=== PATIENT | female | born 1970 | race American Indian/Alaskan Native ===

== ENCOUNTER → 2016-07-19 11:55 | Day surgery (SDC) | payer OTHER ==
[~2016-07-19 11:55] MED LIST: Buffered Lidocaine 1% SYRIN* 3 ML/SYR SYRINGE INTRADERM ONE; Bupivacaine 0.25% SDV* 30 ML ONE; Etomidate* 2 MG/ML 20 ML VIAL (40 MG) ONE; Midazolam* 1 MG/ML 2 ML VIAL (2 MG) ONE; ceFAZolin 2 GM PREMIX(*) 2 GM/50 ML BAG IVPB ONE; fentaNYL* 50 MCG/ML 2 ML VIAL (100 MCG VIAL) ONE
[2016-07-19 13:20] VITALS: BP 119/76
== END | disposition home or self-care (01) ==
LOC: OREAST 11:55
PROVIDERS: ATTEND Plastic Surgery
DX: M65.331 Trigger finger, right middle finger (principal)
CPT/HCPCS: J0690; J2250; J3010

== ENCOUNTER 2016-08-02 11:41 | Day surgery (SDC) | payer OTHER ==
[~2016-08-02 11:41] MED LIST changes: -Bupivacaine 0.25% SDV* 30 ML ONE; -Etomidate* 2 MG/ML 20 ML VIAL (40 MG) ONE; +Famotidine IV* 10 MG/ML 2 ML (20 mg) IV ONE; +Metoclopramide TAB* 10 MG PO ONE; -Midazolam* 1 MG/ML 2 ML VIAL (2 MG) ONE; -ceFAZolin 2 GM PREMIX(*) 2 GM/50 ML BAG IVPB ONE; -fentaNYL* 50 MCG/ML 2 ML VIAL (100 MCG VIAL) ONE
[2016-08-02] MEDS ORDERED: Famotidine IV* 10 MG/ML 2 ML (20 mg) ONE (12:15)
[2016-08-02] MEDS ORDERED: ceFAZolin 2 GM PREMIX(*) 2 GM/50 ML BAG IVPB ONE (12:15)
[2016-08-02] MEDS ORDERED: Metoclopramide TAB* 10 MG ONE (12:15)
[2016-08-02] MEDS ORDERED: fentaNYL* 50 MCG/ML 2 ML VIAL (100 MCG VIAL) ONE (12:44)
[2016-08-02] MEDS ORDERED: Midazolam* 1 MG/ML 5 ML VIAL (5 MG) ONE (12:44)
[2016-08-02] MEDS ORDERED: Bupivacaine 0.25% SDV* 30 ML ONE (13:27)
[2016-08-02] MEDS ORDERED: fentaNYL* 50 MCG/ML 2 ML VIAL (100 MCG VIAL) IV PRN (13:31)
[2016-08-02] MEDS ORDERED: Ondansetron INJ* 2 MG/ML VIAL IV PRN (13:31)
[2016-08-02] MEDS ORDERED: oxyCODONE/Acetamin 5/325 MG* TAB PO PRN (13:31)
[2016-08-02] MEDS ORDERED: Bacitracin OINTMENT* 1 TUBE ONE (13:57)
[2016-08-02 14:23] VITALS: BP 118/61
== END 2016-08-02 14:43 | disposition home or self-care (01) ==
LOC: OREAST 11:41
PROVIDERS: ATTEND Plastic Surgery
DX: M65.332 Trigger finger, left middle finger (principal)
CPT/HCPCS: A9270-GY; J0690; J2250; J3010

== ENCOUNTER 2016-08-30 09:13 | Day surgery (SDC) | payer OTHER ==
[2016-08-30] MEDS ORDERED: ceFAZolin 2 GM PREMIX(*) 2 GM/50 ML BAG IVPB ONE (09:40)
[2016-08-30] MEDS ORDERED: Buffered Lidocaine 1% SYRIN* 5 ML/SYR SYRINGE ONE (09:40)
[2016-08-30] MEDS ORDERED: Dexamethasone IV* 4 MG/ML 1 ML (4 MG) ONE (10:10)
[2016-08-30] MEDS ORDERED: Bupivacaine 0.5% SDV PF* 30 ML VIAL ONE (10:10)
[2016-08-30] MEDS ORDERED: Lidocaine 1% INJ* 10 MG/ML 30 ML SDV ONE (10:11)
[2016-08-30] MEDS ORDERED: Midazolam* 1 MG/ML 5 ML VIAL (5 MG) ONE (10:15)
[2016-08-30] MEDS ORDERED: fentaNYL* 50 MCG/ML 2 ML VIAL (100 MCG VIAL) ONE ×2 (10:15→11:15)
[2016-08-30] MEDS ORDERED: Etomidate* 2 MG/ML 20 ML VIAL (40 MG) ONE (10:19)
[2016-08-30] MEDS ORDERED: Midazolam* 1 MG/ML 2 ML VIAL (2 MG) ONE ×3 (10:35→11:44)
[2016-08-30 13:09] VITALS: BP 128/82
--- NOTE | 2016-08-31 00:32 | OP ---
OPERATIVE REPORT: DATE OF OPERATION: 08/30/16 - RUPESH DATE OF : 72 SURGEON: Jaswant Stewart DPM. PENCIL MAKER: None. ANESTHESIOLOGIST: Hernandez Short DO ANESTHESIA: MAC. PRE-OP DIAGNOSES: 1. Painful bunion deformity of the hallux limitus, right foot. 2. Painful second right hammer toe. 3. Painful tailor's bunion deformity, right foot. POST-OP DIAGNOSES: 1. Painful bunion deformity of the hallux limitus, right foot. 2. Painful second right hammer toe. 3. Painful tailor's bunion deformity, right foot. SURGICAL PROCEDURE: 1. Bunionectomy with first metatarsal osteotomy and phalangeal osteotomy in the right foot. 2. Correction of second right hammertoe. 3. Tailor's bunionectomy with fifth metatarsal osteotomy, right foot. PATHOLOGY: Degenerative bone. HEMOSTASIS: Pneumatic ankle tourniquet. MATERIALS: Three of the 3.0 mm cannulated Grant screws and a smooth 0.045 inch K- wire. INDICATIONS: The patient with chronic right forefoot pain and deformities with a bunion deformity, secondary hammertoe and tailor's bunion deformity causing pain while walking and wearing shoes. She had similar deformities in the left foot, which were surgically treated a few years ago and she opts for similar surgical treatment on the right foot at this time. DESCRIPTION OF PROCEDURE: The patient was brought to the operating room and placed on the operating table in supine position. The anesthesia department administered IV sedation. A peripheral nerve block was performed at the right foot with a 1:1 mixture of 1% lidocaine plain and 0.5% Marcaine plain. The right foot was then prepped and draped in the usual fashion. The right foot was then exsanguinated with an Esmarch bandage and pneumatic ankle tourniquet was inflated to 250 mm Hg about a well-padded right ankle. Attention was directed to the dorsomedial aspect of the right great toe joint where a curvilinear incision was made. The incision was deepened through the subcutaneous tissues with care being taken to retract the neurovascular structures and cauterize superficial bleeders as needed. Next, an inverted L capsular incision was made to allow for exposure of the distal first metatarsal and great toe joint. There was noted to be hypertrophic bone medially at the first metatarsal head. The McGlamry elevator was needed to free plantar lateral adhesions. Next, intracapsular lateral release was performed and dorsally the extensor hallucis brevis tendon was identified and transected. This allowed for relaxation of all lateral contractures. Next, the medial eminence of the first metatarsal head was resected with sagittal saw and next a Chevron type first metatarsal head osteotomy was performed with the apex just dorsal and proximal to the geometric center of the first metatarsal head. The plantar wing was cut, angled slightly plantar proximally laterally to allow for some plantar flexion of the capital fragment. The dorsal wing was then cut and the capital fragment was shifted laterally to the desired corrected position. Temporary fixation was achieved with the smooth wire and after assessing with a C-arm and using standard technique, a 3.0 mm cannulated screw was placed across the osteotomy site with care being taken to ensure that the tip of the screw did not penetrate the joint. The temporary fixation was removed. The position was assessed with C-arm and the osteotomy was inspected and found to be solid with no detectable motion or gapping, the screw was two fingers tight. The redundant medial shelf of bone was resected with a sagittal saw and a power jay was used to smooth the rough edges. The surgical site was flushed with copious amounts of normal sterile saline. Next, dissection was carried further dorsomedially to allow for exposure of the proximal phalanx. Next, an angular wedge of bone was resected from distal medial to more proximal and lateral. The osteotomy was reduced and temporary fixation was achieved with the wire from the screw set and after assessing the position with the C-arm, a 3.0 mm cannulated Grant screw was placed across the osteotomy site. The position was assessed with the C-arm and the temporary fixation was removed. The osteotomy was inspected and found to be solid with no detectable motion or gapping and the screw was two fingers tight. The surgical site was flushed with copious amounts of normal sterile saline. The redundant medial capsule was resected medially and the capsule and periosteal tissues were reapproximated and secured with 2-0 Polysorb by holding the hallux in rectus position. The subcutaneous tissues were then reapproximated with 4-0 Polysorb and the skin was reapproximated with 5-0 nylon. Attention was directed to the dorsal aspect of the proximal interphalangeal joint of the second digit where two similar transversely oriented incisions were made and a resultant wedge of skin was resected. Dissection was carried down to the joint with care being taken to retract neurovascular structures and cauterize superficial bleeders as needed. A transverse tenotomy capsulotomy was performed and the medial and lateral collateral ligaments were incised and the proximal phalangeal head was resected. A power jay was used to smooth the rough edges. Surgical site was flushed with copious amounts of normal sterile saline. A smooth 0.045-inch K- wire was driven to the base of this middle phalanx through the tip of the toe, retrograded back into the proximal phalanx by holding the digit in the corrected position with care being taken to ensure the tip of the wire did not enter the metatarsophalangeal joint. With the arthroplasty site reduced, the wires were bent, cut and capped. The capsular and tendinous structures were reapproximated and secured with 4-0 Polysorb. Subcutaneous tissue was reapproximated with 4-0 Polysorb and 5-0 nylon was used to reapproximate the skin incision. Attention was then directed to the dorsolateral aspect of the fifth metatarsophalangeal joint where a curvilinear incision was made. The incision was deepened through subcutaneous tissues with care being taken to retract neurovascular structures and cauterize superficial bleeders as needed. A linear periosteal and capsular incision was made and allowed for exposure of the fifth metatarsophalangeal joint. There was noted to be hypertrophic bone at the lateral aspect of the fifth metatarsal head. This was resected with a sagittal saw. Medial capsule of the fifth metatarsophalangeal joint was released as it was contracted. Next, the distal osteotomy was performed to the fifth metatarsal with a transverse cut from lateral to medial with sagittal saw. Next, the dorsal distal cut was made and the proximal plantar cut was made to allow for rotation and transposition medially of the capital fragment. Temporary fixation was achieved with a bone clamp as well as a wire from the screw set. Next, after assessing the position with the C-arm, a 3.0 mm cannulated [place] screw was placed across the osteotomy site. The temporary fixation was removed and the osteotomy fixation was assessed with C-arm. The osteotomy was inspected and found to be solid with no detectable motion or gapping, the screw was two fingers tight. The redundant medial shaft bone was burred smooth. Surgical site was flushed with copious amounts of normal sterile saline. Next, the periosteal and capsular tissues were reapproximated and secured with 4-0 Polysorb, subcutaneous tissues were reapproximated with 4- 0 Polysorb and the skin was reapproximated and secured with 5- 0 nylon. A 12 mg of dexamethasone phosphate in total was infiltrated about all 3 surgical sites. A Xeroform gauze was placed across the incisions and dressing was applied with 4x4 gauze, Yaz and light Coban wrap. The pneumatic ankle tourniquet was deflated about the right ankle and a prompt hyperemic response was noted about all 5 digits of the patient's right foot. Having appeared to tolerate the procedures and anesthesia well, the patient was transferred from the operating room to Recovery in satisfactory condition with capillary refill less than 3 seconds to all digits in the right foot. [id number]/[facility] #: [id number] MTDD
== END 2016-08-30 13:05 | disposition home or self-care (01) ==
LOC: OREAST 09:13
PROVIDERS: ATTEND Podiatrist Foot Surgery
DX: M21.611 Bunion of right foot (principal); M21.621 Bunionette of right foot; M20.41 Other hammer toe(s) (acquired), right foot
CPT/HCPCS: 88304; 88311; C1713; C1776; J0690; J1100; J2001; J2250; J3010

== ENCOUNTER 2017-08-15 09:28 | Day surgery (SDC) | payer OTHER ==
[~2017-08-15 09:28] MED LIST changes: +Buffered Lidocaine 0.9% SYRIN* 5 ML/SYR SYRINGE INTRADERM ONE; -Buffered Lidocaine 1% SYRIN* 3 ML/SYR SYRINGE INTRADERM ONE; -Famotidine IV* 10 MG/ML 2 ML (20 mg) IV ONE; -Metoclopramide TAB* 10 MG PO ONE
[2017-08-15] MEDS ORDERED: ceFAZolin 2 GM PREMIX (*) 2 GM/50 ML BAG IVPB ONE (09:33)
[2017-08-15] MEDS ORDERED: Bupivacaine 0.25% SDV* 30 ML ONE (11:59)
[2017-08-15] MEDS ORDERED: Midazolam* 1 MG/ML 2 ML VIAL (2 MG) ONE ×2 (12:04→12:16)
[2017-08-15] MEDS ORDERED: fentaNYL* 50 MCG/ML 2 ML VIAL (100 MCG VIAL) ONE (12:04)
[2017-08-15] MEDS ORDERED: Naloxone* 0.4 MG/ML 1 ML VIAL IV PRN (12:19)
[2017-08-15 12:40] VITALS: BP 112/64
== END 2017-08-15 13:08 | disposition home or self-care (01) ==
LOC: OREAST 09:28
PROVIDERS: ATTEND Plastic Surgery
DX: M65.352 Trigger finger, left little finger (principal); F41.8 Other specified anxiety disorders
CPT/HCPCS: 81025; J0690; J2250; J3010